=== PATIENT | female | born 1965 | race Caucasian/White ===

== ENCOUNTER → 2017-07-29 | Outpatient (CLI) | payer OTHER ==
[2017-07-29 11:31] LABS: Appearance,Urine Clear (Clear); Bilirubin,Urine Negative (Negative); Blood,Urine Negative (Negative); Color,Urine Yellow; Glucose,Urine (UA) Negative (Negative); Ketones,Urine Negative (Negative); Leukocyte Esterase,Urine Negative (Negative); Nitrite,Urine Negative (Negative); PH, Urine 5.5 (5.0-8.0); Protein,Urine Trace (Negative); Specific Gravity,Urine 1.022 (1.001-1.035)
[2017-07-29 11:42] LABS: Basophils # (A) 0.1 k/uL (0-0.2); Basophils % (A) 1 %; Eosinophils # (A) 0.1 k/uL (0-0.7); Eosinophils % (A) 3 %; HCT 40.3 % (34.0-46.0); HGB 13.7 gm/dL (11.4-16.0); Lymphocytes # (A) 1.5 k/uL (1.0-4.8); Lymphocytes % (A) 31 %; MCHC 33.8 g/dL (31.0-37.0); MCV 94.5 fL (80.0-100.0); Mean Platelet Volume 6.7; Monocytes # (A) 0.5 k/uL (0-1.0); Monocytes % (A) 10 %; Neutrophils # (A) 2.6 k/uL (1.3-7.7); Neutrophils % (A) 53 %; Platelet Count 297 k/uL (150-450); RBC 4.27 m/uL (3.80-5.40); RDW 12.1 % (11.5-15.5)
[2017-07-29 11:50] LABS: Prothrombin Time 10.1 sec (9.0-12.0)
[2017-07-29 11:55] LABS: Albumin 4.4 g/dL (3.5-5.0); Calcium 9.8 mg/dL (8.4-10.2); Potassium 4.6 mmol/L (3.5-5.1); Total Bilirubin 0.7 mg/dL (0.2-1.3); Total Protein 7.2 g/dL (6.3-8.2)
== END ==
LOC: LABPAT 10:38
PROVIDERS: ATTEND Orthopaedic Surgery
DX: Z01.812 Encounter for preprocedural laboratory examination (principal)
CPT/HCPCS: 36415; 80053; 81003; 85025; 85610; 85730; 87086

== ENCOUNTER → 2020-06-23 | Outpatient (CLI) | payer OTHER ==
--- NOTE | 2020-06-27 10:35 | MM ---
Reason for exam: screening (asymptomatic). Last mammogram was performed 5 years and 6 months ago. History: Patient is postmenopausal. Family history of breast cancer in maternal cousin at age 44. Took hormonal contraceptives for 10 years beginning at age 15. Taking estrogen for 3 years beginning at age 40. Physical Findings: A clinical breast exam by your physician is recommended on an annual basis and results should be correlated with mammographic findings. MG 3D Screening Mammo W/Cad Bilateral CC and MLO view(s) were taken. Prior study comparison: July 29, 2017, mammogram, performed at [facility]. December 22, 2014, bilateral MG diagnostic mammo w CAD [facility]. May 01, 2009, mammogram. There are scattered fibroglandular densities. No significant changes when compared with prior studies. ASSESSMENT: Negative, BI-RAD 1 RECOMMENDATION: Routine screening mammogram of both breasts in 1 year.
== END | disposition home or self-care (01) ==
LOC: RADMAMWWP 13:06
PROVIDERS: ATTEND Family Medicine
DX: Z12.31 Encounter for screening mammogram for malignant neoplasm of breast (principal); Z78.0 Asymptomatic menopausal state; Z80.3 Family history of malignant neoplasm of breast
CPT/HCPCS: 77063; 77067

== ENCOUNTER → 2020-06-23 | Outpatient (CLI) | payer OTHER ==
--- NOTE | 2020-06-23 13:40 | US ---
EXAMINATION TYPE: US thyroid st tissue head/neck DATE OF EXAM: 06/23/2020 COMPARISON: NONE CLINICAL HISTORY: E04.1 nontoxic single nodule,E03.9 Hypothyroidism. hypothyroidism GLAND SIZE: Right Lobe: 3.0 x 1.6 x 1.3 cm Overall Parenchyma: heterogenous Left Lobe: 3.0 x 0.9 x 0.8 cm Overall Parenchyma: heterogeneous Isthmus Thickness: 0.2 cm NODULES RIGHT: # of nodules measured on right: 0 LEFT: # of nodules measured on left: 0 ISTHMUS: # of nodules measured in the isthmus: 0 Bilateral neck scanned, no evidence of lymphadenopathy. IMPRESSION: 1. No sizable thyroid nodule. Tissue is heterogeneous correlate for thyroiditis.
== END | disposition home or self-care (01) ==
LOC: RADUSWWP 12:45
PROVIDERS: ATTEND Family Medicine
DX: E03.9 Hypothyroidism, unspecified (principal)
CPT/HCPCS: 76536

== ENCOUNTER → 2021-10-09 | Outpatient (CLI) | payer MEDICARE, OTHER ==
--- NOTE | 2021-10-09 14:52 | BD ---
EXAMINATION TYPE: Axial Bone Density DATE OF EXAM: 10/09/2021 COMPARISON: NONE CLINICAL HISTORY: 56 years year old Female. ICD-10 CODE: M25.551 PAIN IN RT HIP Height: 63 IN Weight: 154 LBS FRAX RISK QUESTIONS: Secondary Osteoporosis: 3. Menopause before 45: TOTAL HYST AGE 30 Rheumatoid Arthritis: YES RISK FACTORS HISTORY OF: Active: YES Diet low in dairy products/other sources of calcium: YES Postmenopausal woman: TOTAL HYST AGE 30 Take estrogen and/or progesterone medications: NOT NOW How lon YEARS MEDICATIONS: Thyroid Medications: YES Which medication: Levothyroxine How Lon+ YEARS Additional Medications: LEVOTHYROXINE, BUPROPRON, CELECOXIB, HCTZ, PANTOPRAZOLE, VENLAFAXINE, ALPRZOL AM, TRAZODONE, METHOTREXATE, FOLIC ACID EXAM MEASUREMENTS: Bone mineral densitometry was performed using the [employer] System. Bone mineral density as measured about the Lumbar spine is: ----- L1-L4(G/cm2): 1.115 T Score Values are as follows: ----- L1: -1.1 ----- L2: -1.1 ----- L3: -0.5 ----- L4: 0.2 ----- L1-L4: -0.5 Bone mineral density BASELINE Bone mineral density about the R hip (g/cm2): 0.944 Bone mineral density about the L hip (g/cm2): 1.007 T Score values are as follows: -----R Neck: -0.7 -----L Neck: -0.2 -----R Total: -0.6 -----L Total: 0.0 Bone mineral density BASELINE FRAX%s: The graph provided illustrates a 8.0 chance for a major osteoporotic fx and a 0.3 chance for the hips probability for fx in 10 years time. IMPRESSION: Normal (Values between +1 and -1 indicate normal bone mass). Consider repeating this study in 5 year s or sooner if there is some new clinical indication. NOTE: T-SCORE=SD OF THE YOUNG ADULT MEAN.
== END | disposition home or self-care (01) ==
LOC: RADBDWWP 13:31
PROVIDERS: ATTEND Family Medicine
DX: M25.561 Pain in right knee (principal); M25.551 Pain in right hip; M51.36 Other intervertebral disc degeneration, lumbar region
CPT/HCPCS: 77080

== ENCOUNTER → 2023-03-18 | Outpatient (CLI) | payer MEDICARE ==
--- NOTE | 2023-03-18 20:40 | US ---
EXAMINATION TYPE: US venous doppler duplex LE DATE OF EXAM: 03/18/2023 3:43 PM COMPARISON: NONE CLINICAL INDICATION: Female, 57 years old with history of M79.661 PAIN IN RIGHT LO; M79.662 Pain in b il legs; RLE pain with dependance; Purple discoloration at night SIDE PERFORMED: Bilateral TECHNIQUE: The lower extremity deep venous system is examined utilizing real time linear array sonog juan with graded compression, doppler sonography and color-flow sonography. VESSELS IMAGED: Common Femoral Vein Deep Femoral Vein Greater Saphenous Vein * Femoral Vein Popliteal Vein Small Saphenous Vein * Proximal Calf Veins (* superficial vessels) Right Leg: Negative for DVT Left Leg: Negative for DVT IMPRESSION: Grayscale, color doppler, spectral doppler imaging performed of the deep veins of the lo wer extremities. There is normal flow, compressibility, vascular waveforms.
--- NOTE | 2023-03-18 20:41 | US ---
EXAMINATION TYPE: US arterial LE single level DATE OF EXAM: 03/18/2023 4:15 PM CLINICAL INDICATION: Female, 57 years old with history of M79.661 PAIN IN RIGHT LO; M79.662 Pain in b il legs; History of: Smoker: Previous Hypertension: No Diabetic: No Hyperlipidemia: No TIA/CVA: No Previous Vascular Surgery: No CAD: No MD: No Vascular Ulcers: No Claudication: Right Gangrene: No Doppler Waveforms: Right: Multiphasic Left: Multiphasic Pulse Volume Recording: NA Pressure Gradients: NA Right Brachial Pressure: 142 Left Brachial Pressure: 140 Ankle-Brachial Indices: Right: 1.15 Left: 1.04 Toe Brachial Indices: Right: 0.88 Left: 0.96 IMPRESSION: Ankle-brachial indices within normal limits bilaterally. Toe brachial indices within normal limits bi laterally.
== END | disposition home or self-care (01) ==
LOC: RADUSWWP 14:55
PROVIDERS: ATTEND Family Medicine
DX: M79.661 Pain in right lower leg (principal); M79.662 Pain in left lower leg
CPT/HCPCS: 93922; 93970

== ENCOUNTER → 2024-08-26 | Outpatient (CLI) | payer MEDICARE ==
--- NOTE | 2024-08-26 14:43 | MM ---
Reason for Exam: Screening (asymptomatic). Last mammogram was performed 4 year(s) and 2 month(s) ago. Patient History: Menarche at age 11. First Full-Term at age 14. Left ovary removed at age 40. Right ovary removed at age 40. Hysterectomy at age 40. Postmenopausal. Currently using Estrogen, beginning at age 40 for 3 years. Hormonal Contraceptives for 10 years from age 15 until age 25. Maternal cousin had breast cancer, age 44. Risk Values: Sherie 5 year model risk: 1.0%. NCI Lifetime model risk: 5.3%. Prior Study Comparison: 12/22/2014 Bilateral Diagnostic Mammogram, [facility]. 07/29/2017 Screening Mammogram, [facility]. 06/23/2020 Bilateral Screening Mammogram, [facility]. Tissue Density: There are scattered areas of fibroglandular density. Findings: Analyzed By CAD. There is no suspicious group of microcalcifications or new suspicious mass in either breast. Overall Assessment: Benign, BI-RAD 2 Management: Screening Mammogram of both breasts in 1 year. . Patient should continue monthly self-breast exams. A clinical breast exam by your physician is recommended on an annual basis. This exam should not preclude additional follow-up of suspicious palpable abnormalities. Note on Sherie scores and lifetime risk: 1. A Sherie score greater than 3% is considered moderate risk. If this is the case, consider specialist referral to assess eligibility for a risk reducing agent. 2. If overall lifetime risk for the development of breast cancer is 20% or higher, the patient may qualify for future screening with alternating mammogram and breast MRI. [facility], , 08/26/2024 2:41 PM. Electronically signed and approved by: Josef Lopez M.D. Radiologis
--- NOTE | 2024-08-26 15:19 | BD ---
EXAMINATION TYPE: Axial Bone Density DATE OF EXAM: 08/26/2024 CLINICAL HISTORY: 58 years old Female. ICD-10 CODE: M85.80 OTH DISRD OF BONE DENSITY , Additional H istory: Height: 63 Weight: 170 FRAX RISK QUESTIONS: Secondary Osteoporosis: 3. Menopause before 45: yes Rheumatoid Arthritis: yes RISK FACTORS HISTORY OF: Surgery to Spine/Hip(right/left)/Wrist (right/left): discectomy at L4-L5 When: 2000 MEDICATIONS: Thyroid Medications: Which medication: Synthroid How Long: about 42 years EXAM MEASUREMENTS: Bone mineral densitometry was performed using the [employer] System. Bone mineral density as measured about the Lumbar spine is: ----- L1-L4(G/cm2): 1.077 T Score Values are as follows: ----- L1: -1.7 ----- L2: -1.3 ----- L3: -0.6 ----- L4: -0.1 ----- L1-L4: -0.9 Z Score Values are as follows: ----- L1: -0.9 ----- L2: -0.5 ----- L3: 0.3 ----- L4: 0.7 ----- L1-L4: 0.0 Bone mineral density has: Decreased -3.4% since study of: 10-09-21 Bone mineral density about the R hip (g/cm2): 0.966 Bone mineral density about the L hip (g/cm2): 1.030 T Score values are as follows: -----R Neck: -0.4 -----L Neck: -0.4 -----R Total: -0.3 -----L Total: 0.2 Z Score values are as follows: -----R Neck: 0.6 -----L Neck: 0.6 -----R Total: 0.3 -----L Total: 0.9 Bone mineral density has: Increased 3% since study of: 10-09-21 FRAX%s: The graph provided illustrates a 8.3% chance for a major osteoporotic fx and a 0.3% chance fo r the hips probability for fx in 10 years time. IMPRESSION: Osteopenia (T Score between -2.5 and -1). There is slightly increased risk of fracture and the patient may be considered for treatment. Re-Screen 2-5 years. NOTE: T-SCORE=SD OF THE YOUNG ADULT MEAN. [facility], , 08/26/2024 3:17 PM
== END | disposition home or self-care (01) ==
LOC: RADMAMWWP 14:15
PROVIDERS: ATTEND Family Medicine
DX: Z12.31 Encounter for screening mammogram for malignant neoplasm of breast (principal); R92.323 Mammographic fibroglandular density, bilateral breasts; M85.89 Other specified disorders of bone density and structure, multiple sites; Z78.0 Asymptomatic menopausal state; Z80.3 Family history of malignant neoplasm of breast; Z92.0 Personal history of contraception
CPT/HCPCS: 77063; 77067; 77080